=== PATIENT | female | born 1970 | race Caucasian/White ===

== ENCOUNTER 2017-02-14 17:41 | Emergency (ER) | payer OTHER ==
[2017-02-14] MEDS ORDERED: SODIUM CHLORIDE 0.9% 1,000 ML ONE (18:52)
[2017-02-14] MEDS ORDERED: KETOROLAC TROMETHAMINE 30 MG/ML 1 ML VIAL ONE (18:52)
[2017-02-14 19:19] LABS: ABSOLUTE NEUTROPHIL COUNT 10.2 K/mm3 (1.8-7.7); BASO # 0.1 K/mm3 (0.0-0.2); BASO % 0.4 % (0.2-1.0); EOS # 0.1 (0.0-0.5); HEMATOCRIT 34.6 % (37.0-47.0); HEMOGLOBIN 11.2 gm/l (12.0-16.0); IMM NEUT # 0.1 K/mm3 (0-0.2); IMM NEUT% 0.5 % (0-1); LYMPH # 1.9 (1.0-4.8); LYMPH % 14.1 % (15-45); MEAN CORPUSCULAR HEMOGLOBIN 30.1 pg (27.0-31.0); MEAN CORPUSCULAR HGB CONC 32.4 g/dl (33.0-37.0); MEAN PLATELET VOLUME 11.1 fl (7.4-10.4); MONO # 1.2 (0.0-0.8); MONO % 8.9 % (4-12); NEUT % 75.1 % (43-75); PLATELET COUNT 164 K/mm3 (130-400); RED CELL DISTRIBUTION WIDTH 12.7 % (11.5-14.5)
[2017-02-14 19:36] LABS: ALB/GLOB RATIO 1.1 (>1.0); ALBUMIN 3.5 gm/dL (3.5-5.7); CALCIUM 8.3 mg/dL (8.6-10.3)
[2017-02-14] MEDS: IOPAMIDOL 370 (76%) 100 ML VIAL IV ONE (20:54)
--- NOTE | 2017-02-14 21:10 | CT ---
Exam: CT angiogram chest with contrast Comparison: Chest radiograph 12/07/2014 History: Cold symptoms for one week, now coughing up dark red blood. Surgery 2 1/2 weeks ago. Technique: CT angiogram of the chest was obtained following the administration of 80 mL Isovue-370 intravenous contrast using a CT angiogram pulmonary embolism protocol which was supplemented with MIP reformations from the CT workstation. Findings: There is no evidence of acute pulmonary thromboembolic disease to the proximal subsegmental level. There is patchy airspace disease throughout the vast majority of the left lung, upper lobe predominant, as well as some patchy groundglass opacities within the right lower lobe and subpleural opacities within the right upper lobe. There are mildly prominent lymph nodes within the mediastinum and hilum, more significant for number rather than size, and are likely reactive. There is no pleural effusion. Heart is at the upper limits of normal. There is no pericardial effusion. Limited evaluation of the upper abdomen is without acute or concerning abnormality. IMPRESSION: 1. Airspace disease within the vast majority of the left lung, with less severe airspace disease within the right lung, with a subpleural predominance within the upper lobes. Findings are most compatible with pneumonia in the correct clinical setting, with atypical etiologies considered given how diffuse the findings are distributed. 2. No evidence of acute pulmonary thromboembolic disease. Findings were discussed with Dr. Sethi 02/14/2017.
== END 2017-02-14 21:24 | disposition home or self-care (01) ==
LOC: ED 17:41
DX: J18.9 Pneumonia, unspecified organism (principal); R06.02 Shortness of breath; E66.01 Morbid (severe) obesity due to excess calories; F17.210 Nicotine dependence, cigarettes, uncomplicated
CPT/HCPCS: 84703; 85025; 80053; 71275; 99284 ×2; 96374; 96361 ×2; 93005; J1885; J7030; Q9967